=== PATIENT | female | born 1940 | race Caucasian/White ===

== ENCOUNTER 2017-05-28 09:52 | Inpatient (IN) | payer MEDICARE, OTHER ==
[~2017-05-28] VITALS: Ht 157.5 cm; Wt 70.1 kg
[~2017-05-28 09:52] MED LIST: ASPI325T80 PO; FURO20TA3 PO; LEVO88TA4 PO; LOSA50TA6 PO; METO-93 PO; MULT-257 PO; OMEG1CAP57 PO; PRAV10TA2 PO
[2017-05-28] MEDS ORDERED: hydrALAzine 20 MG/ML, 1ML ONE ×2 (10:09→11:16)
[2017-05-28] MEDS ORDERED: hydrALAzine 20 MG/ML, 1ML IV ONE ×2 (10:30→11:30)
[2017-05-28 10:43] LABS: BLOOD UREA NITROGEN 12 mg/dL (7-18)
[2017-05-28 10:51] LABS: IS PT STATUS REG ER OR PRE ER? YES
[2017-05-28 14:30] VITALS: BP 217/80
[2017-05-28] MEDS ORDERED: hydrALAzine 20 MG/ML, 1ML IV PRN ×2 (15:00→20:00)
[2017-05-28] MEDS ORDERED: PRAVASTATIN 20 MG TABLET PO SCH (15:30)
[2017-05-28] MEDS: ENOXAPARIN 40 MG/0.4 ML SQ SCH (15:30)
[2017-05-28] MEDS ORDERED: ACETAMINOPHEN 650 MG/20.3 ML UDC PO PRN (15:30)
[2017-05-28 15:43] VITALS: BP 210/78
[2017-05-28] MEDS ORDERED: FUROSEMIDE 20 MG/2 ML IV ONE (16:00)
[2017-05-28 16:39] LABS: IS PT STATUS REG ER OR PRE ER? NO
[2017-05-28 16:45] VITALS: BP 121/68
[2017-05-28 17:20] VITALS: BP 177/76
[2017-05-28] MEDS ORDERED: ONDANSETRON 2MG/ML, 2ML ONE (17:46)
[2017-05-28 17:48] VITALS: BP 130/79
[2017-05-28] MEDS ORDERED: ONDANSETRON 2MG/ML, 2ML IVPush PRN (18:00)
[2017-05-28 19:04] VITALS: BP 147/72
[2017-05-28] MEDS: LOSARTAN 50MG TABLET PO SCH (20:50)
[2017-05-28 21:36] LABS: IS PT STATUS REG ER OR PRE ER? NO
[2017-05-29 02:39] VITALS: BP 151/72
[2017-05-29 05:20] LABS: ASPARTATE AMINO TRANSFERASE 18 U/L (15-37); BLOOD UREA NITROGEN 14 mg/dL (7-18)
[2017-05-29 06:41] VITALS: BP 118/65
[2017-05-29] MEDS ORDERED: FUROSEMIDE 20 MG/2 ML IVPush SCH (09:00)
[2017-05-29] MEDS ORDERED: MULTIVITAMIN 1 TABLET PO SCH (09:00)
[2017-05-29] MEDS ORDERED: LEVOTHYROXINE 88 MCG TABLET PO SCH (09:00)
[2017-05-29] MEDS ORDERED: METOPROLOL SUCCINATE 50 MG TAB.ER.24H PO SCH (09:00)
[2017-05-29] MEDS ORDERED: FAMOTIDINE 20 MG TABLET PO SCH (09:00)
[2017-05-29 09:42] VITALS: BP 144/66
[2017-05-29] MEDS: LOSARTAN 50MG TABLET PO SCH (09:44)
[2017-05-29] MEDS ORDERED: FURO40TA6 PO (11:43)
[2017-05-29 12:37] VITALS: BP 136/72
[2017-05-29] MEDS: ENOXAPARIN 40 MG/0.4 ML SQ SCH (15:30)
== END 2017-05-29 16:25 | disposition home or self-care (01) | DRG 305 ==
LOC: ED 11:09 → EDIP 12:04 → 5SO 14:19 → DCLOUNGE 05-29 15:43
PROVIDERS: ADMIT Hospitalist; ATTEND Hospitalist
DX: I16.0 Hypertensive urgency (principal); J84.9 Interstitial pulmonary disease, unspecified; I42.9 Cardiomyopathy, unspecified; E03.9 Hypothyroidism, unspecified; E11.9 Type 2 diabetes mellitus without complications; E78.00 Pure hypercholesterolemia, unspecified; I27.2 Other secondary pulmonary hypertension; G35 Multiple sclerosis; I10 Essential (primary) hypertension; I25.10 Atherosclerotic heart disease of native coronary artery without angina pectoris; I25.2 Old myocardial infarction; Z85.3 Personal history of malignant neoplasm of breast; Z86.73 Personal history of transient ischemic attack (TIA), and cerebral infarction without residual deficits; Z95.1 Presence of aortocoronary bypass graft; Z87.891 Personal history of nicotine dependence; Z99.81 Dependence on supplemental oxygen; Z88.1 Allergy status to other antibiotic agents; Z88.6 Allergy status to analgesic agent; Z88.8 Allergy status to other drugs, medicaments and biological substances; Z90.49 Acquired absence of other specified parts of digestive tract; Z90.11 Acquired absence of right breast and nipple; Z90.710 Acquired absence of both cervix and uterus; Z98.1 Arthrodesis status
CPT/HCPCS: 36415; 71010; 80048; 80053; 82040; 83880; 84484; 85025; 93005; 96374; 96376; J2405; J0360; J1940

== ENCOUNTER → 2018-05-07 | Outpatient (CLI) | payer MEDICARE ==
[~2018-05-07] MED LIST changes: +FURO40TA6 PO
== END | disposition home or self-care (01) ==
LOC: CFH 10:20
PROVIDERS: ATTEND Internal Medicine Hematology & Oncology
DX: Z12.31 Encounter for screening mammogram for malignant neoplasm of breast (principal); Z85.3 Personal history of malignant neoplasm of breast; Z90.11 Acquired absence of right breast and nipple
CPT/HCPCS: 77067

== ENCOUNTER 2018-12-09 06:53 | Inpatient (IN) | payer MEDICARE ==
[~2018-12-09] VITALS: Ht 157.5 cm; Wt 69.8 kg
[~2018-12-09 06:53] MED LIST changes: +LOSA50TA14 PO; -LOSA50TA6 PO
[2018-12-09] MEDS ORDERED: SODIUM CHLORIDE FLUSH 10ML SYR IVF ONE (07:00)
[2018-12-09] MEDS ORDERED: MORPHINE SULFATE 4 MG/ML, 1ML IVPush PRN (07:00)
--- NOTE | 2018-12-09 07:07 | NUR ---
Pt BIB [facility]-c/o SOB x2 days, worse this AM when she woke up. Pt's O2 sat initially 83% on her home O2 of 4L via [place]. On arrival of EMS at pt's house pt was sitting up in bed, wheezing, speaking in 2-3 word sentences. On arrival to ER pt appears more comfortable, speaking in full sentences. Lung sounds coarse on auscultation. Pt denies pain, no other complaints. Pt placed in gown, positioned for comfort in bed with warm blanket. Continuous heart, oxygen and BP monitors applied, all safety measures observed.
--- NOTE | 2018-12-09 07:48 | NUR ---
Pt continues resting in bed, resp even and unlabored, speaking in full sentences, denies needs.
--- NOTE | 2018-12-09 08:11 | NUR ---
Pt continues improving, maintaining O2 sat >94% on 5L via [place]. Discussed pt condition with Dr. Denise. Will continue to monitor.
[2018-12-09 08:12] LABS: BASOPHILS # (AUTO) 0.01 x10^3/uL (0-0.1); BASOPHILS % (AUTO) 0 % (0-1); EOSINOPHILS # (AUTO) 0.41 x10^3/uL (0-0.4); EOSINOPHILS % (AUTO) 4 % (1-7); LYMPHOCYTES # (AUTO) 1.58 x10^3/uL (1-3.4); LYMPHOCYTES % (AUTO) 16 % (22-44); MD NO; MEAN CORPUSCULAR HEMOGLOBIN 28.2 pg (27.0-34.8); MEAN CORPUSCULAR HGB CONC 32.6 g/dL (32.4-35.8); MEAN CORPUSCULAR VOLUME 86.5 fL (80-100); MEAN PLATELET VOLUME 6.5 fL (7.4-10.4); MONOCYTES # (AUTO) 0.46 x10^3/uL (0.2-0.8); MONOCYTES % (AUTO) 5 % (2-9); NEUTROPHILS # (AUTO) 7.36 x10^3/uL (1.8-6.8); NEUTROPHILS % (AUTO) 75 % (42-75); PLATELET COUNT 403 x10^3/uL (130-400); RED CELL DISTRIBUTION WIDTH 14.8 % (9.6-15.2)
[2018-12-09 08:23] LABS: ALANINE AMINOTRANSFERASE 14 U/L (12-78); ALBUMIN 3.2 g/dL (3.4-5.0); ANION GAP 6 mmol/L (5-15); CALCIUM 8.9 mg/dL (8.5-10.1); CHLORIDE 103 mmol/L (98-107); CREATININE 1.01 mg/dL (0.55-1.02)
[2018-12-09 08:28] LABS: ALKALINE PHOSPHATASE 116 U/L (45-117); BILIRUBIN,TOTAL 0.6 mg/dL (0.2-1.0); TOTAL PROTEIN 8.5 g/dL (6.4-8.2); TROPONIN I < 0.015 ng/mL (0.000-0.045)
--- NOTE | 2018-12-09 08:56 | NUR ---
Pt resting in bed, NADN, denies needs.
[2018-12-09] MEDS ORDERED: FUROSEMIDE 40 MG/4 ML IV ONE (09:00)
--- NOTE | 2018-12-09 09:11 | NUR ---
[facility] MD at bedside to evaluate pt for admission.
[2018-12-09] MEDS ORDERED: hydrALAzine 20 MG/ML, 1ML IVPush PRN (09:30)
[2018-12-09] MEDS ORDERED: FUROSEMIDE 40 MG/4 ML ONE (09:47)
--- NOTE | 2018-12-09 09:56 | NUR ---
Pt medicated per MAR, denies other needs.
--- NOTE | 2018-12-09 10:16 | NUR ---
Report called to Camille CHAKRABORTY on oncology. Floor ready for pt transport.
--- NOTE | 2018-12-09 10:25 | NUR ---
Pt assisted to bedside commode to void and back to bed without difficulty. POC discussed with pt. Pt denies other needs.
[2018-12-09] MEDS: ENOXAPARIN 30 MG/0.3 ML SQ SCH ×2 (11:23→20:36)
[2018-12-09] MEDS: ASPIRIN 325 MG TABLET PO SCH (11:23)
[2018-12-09] MEDS: LOSARTAN 50MG TABLET PO SCH (11:24)
[2018-12-09] MEDS: METOPROLOL SUCCINATE 50 MG TAB.ER.24H PO SCH (11:24)
[2018-12-09] MEDS: POTASSIUM CHLORIDE 20 MEQ TAB.ER.PRT PO SCH (11:24)
[2018-12-09 11:37] VITALS: BP 166/84
[2018-12-09 20:00] VITALS: BP 147/80
[2018-12-09] MEDS: PRAVASTATIN 20 MG TABLET PO SCH (20:35)
[2018-12-10 02:00] VITALS: BP 149/70
[2018-12-10 04:58] LABS: ANION GAP 6 mmol/L (5-15); CALCIUM 8.6 mg/dL (8.5-10.1); CHLORIDE 104 mmol/L (98-107)
[2018-12-10 04:59] LABS: CREATININE 0.98 mg/dL (0.55-1.02)
[2018-12-10 08:17] VITALS: BP 100/57
[2018-12-10 08:18] LABS: BASOPHILS # (AUTO) 0.04 x10^3/uL (0-0.1); BASOPHILS % (AUTO) 1 % (0-1); EOSINOPHILS # (AUTO) 0.46 x10^3/uL (0-0.4); EOSINOPHILS % (AUTO) 5 % (1-7); LYMPHOCYTES # (AUTO) 2.12 x10^3/uL (1-3.4); LYMPHOCYTES % (AUTO) 23 % (22-44); MD NO; MEAN CORPUSCULAR HEMOGLOBIN 28.1 pg (27.0-34.8); MEAN CORPUSCULAR HGB CONC 32.6 g/dL (32.4-35.8); MEAN PLATELET VOLUME 7.1 fL (7.4-10.4); MONOCYTES # (AUTO) 0.62 x10^3/uL (0.2-0.8); MONOCYTES % (AUTO) 7 % (2-9); NEUTROPHILS # (AUTO) 5.87 x10^3/uL (1.8-6.8); NEUTROPHILS % (AUTO) 65 % (42-75); PLATELET COUNT 388 x10^3/uL (130-400); RED BLOOD COUNT 3.88 x10^6/uL (3.82-5.3); RED CELL DISTRIBUTION WIDTH 15.2 % (9.6-15.2)
[2018-12-10] MEDS: METOPROLOL SUCCINATE 50 MG TAB.ER.24H PO SCH (08:32)
[2018-12-10] MEDS: LOSARTAN 50MG TABLET PO SCH (08:32)
[2018-12-10] MEDS: ENOXAPARIN 30 MG/0.3 ML SQ SCH ×2 (08:41→20:01)
[2018-12-10] MEDS: ASPIRIN 325 MG TABLET PO SCH (08:51)
[2018-12-10] MEDS: LEVOTHYROXINE 88 MCG TABLET PO SCH (08:51)
[2018-12-10] MEDS: POTASSIUM CHLORIDE 20 MEQ TAB.ER.PRT PO SCH (08:51)
[2018-12-10] MEDS: FUROSEMIDE 40 MG TABLET PO SCH (08:52)
[2018-12-10 20:00] VITALS: BP 117/65
[2018-12-10] MEDS: PRAVASTATIN 20 MG TABLET PO SCH (20:08)
[2018-12-11 02:00] VITALS: BP 119/69
[2018-12-11 04:52] LABS: BASOPHILS # (AUTO) 0.04 x10^3/uL (0-0.1); BASOPHILS % (AUTO) 1 % (0-1); EOSINOPHILS # (AUTO) 0.47 x10^3/uL (0-0.4); EOSINOPHILS % (AUTO) 5 % (1-7); LYMPHOCYTES # (AUTO) 2.05 x10^3/uL (1-3.4); LYMPHOCYTES % (AUTO) 23 % (22-44); MD NO; MEAN CORPUSCULAR HEMOGLOBIN 28.5 pg (27.0-34.8); MEAN CORPUSCULAR HGB CONC 32.9 g/dL (32.4-35.8); MEAN CORPUSCULAR VOLUME 86.8 fL (80-100); MEAN PLATELET VOLUME 6.5 fL (7.4-10.4); MONOCYTES % (AUTO) 7 % (2-9); NEUTROPHILS # (AUTO) 5.66 x10^3/uL (1.8-6.8); NEUTROPHILS % (AUTO) 64 % (42-75); PLATELET COUNT 393 x10^3/uL (130-400); RED CELL DISTRIBUTION WIDTH 15.3 % (9.6-15.2)
[2018-12-11 05:01] LABS: ALANINE AMINOTRANSFERASE 15 U/L (12-78); ALBUMIN 2.9 g/dL (3.4-5.0); ANION GAP 9 mmol/L (5-15); CALCIUM 8.6 mg/dL (8.5-10.1); CHLORIDE 103 mmol/L (98-107); CREATININE 1.29 mg/dL (0.55-1.02)
[2018-12-11] MEDS: ASPIRIN 325 MG TABLET PO SCH (05:03)
[2018-12-11 05:04] LABS: ALKALINE PHOSPHATASE 111 U/L (45-117); BILIRUBIN,TOTAL 0.7 mg/dL (0.2-1.0); TOTAL PROTEIN 7.7 g/dL (6.4-8.2)
[2018-12-11 07:32] VITALS: BP 117/64
[2018-12-11] MEDS: POTASSIUM CHLORIDE 20 MEQ TAB.ER.PRT PO SCH (10:01)
[2018-12-11] MEDS: METOPROLOL SUCCINATE 50 MG TAB.ER.24H PO SCH (10:02)
[2018-12-11] MEDS: LOSARTAN 50MG TABLET PO SCH (10:02)
[2018-12-11] MEDS: FUROSEMIDE 40 MG TABLET PO SCH (10:02)
[2018-12-11] MEDS: LEVOTHYROXINE 88 MCG TABLET PO SCH (10:02)
[2018-12-11] MEDS ORDERED: ENOXAPARIN 30 MG/0.3 ML SQ SCH (11:00)
[2018-12-11 12:41] VITALS: BP 109/66
== END 2018-12-11 16:52 | disposition home health service (06) | DRG 291 ==
LOC: ED 08:51 → EDIP 08:52 → 3NW 10:53 → DCLOUNGE 12-11 16:26
PROVIDERS: ADMIT Family Medicine; ATTEND Family Medicine
DX: I11.0 Hypertensive heart disease with heart failure (principal); J96.21 Acute and chronic respiratory failure with hypoxia; J84.9 Interstitial pulmonary disease, unspecified; I50.43 Acute on chronic combined systolic (congestive) and diastolic (congestive) heart failure; E03.9 Hypothyroidism, unspecified; E11.9 Type 2 diabetes mellitus without complications; E78.00 Pure hypercholesterolemia, unspecified; D64.9 Anemia, unspecified; D47.3 Essential (hemorrhagic) thrombocythemia; I25.10 Atherosclerotic heart disease of native coronary artery without angina pectoris; Z86.73 Personal history of transient ischemic attack (TIA), and cerebral infarction without residual deficits; Z87.891 Personal history of nicotine dependence; Z90.710 Acquired absence of both cervix and uterus; Z99.81 Dependence on supplemental oxygen; I25.2 Old myocardial infarction; Z95.1 Presence of aortocoronary bypass graft; Z90.10 Acquired absence of unspecified breast and nipple; Z85.3 Personal history of malignant neoplasm of breast; Z90.49 Acquired absence of other specified parts of digestive tract; Z88.6 Allergy status to analgesic agent; Z88.5 Allergy status to narcotic agent; Z88.8 Allergy status to other drugs, medicaments and biological substances; Z98.51 Tubal ligation status
CPT/HCPCS: 36415; 71045; 80048; 80053; 83880; 84484; 85025; 87040; 93005; 99285; G0378; J1650; J1940

== ENCOUNTER → 2019-01-07 | Outpatient (CLI) | payer MEDICARE ==
[~2019-01-07] MED LIST changes: +REGADENOSON 0.4 MG/5 ML SYRINGE ONE
== END | disposition home or self-care (01) ==
LOC: CFH 12:18
PROVIDERS: ATTEND Internal Medicine Cardiovascular Disease
DX: I25.10 Atherosclerotic heart disease of native coronary artery without angina pectoris (principal); I25.2 Old myocardial infarction; R07.9 Chest pain, unspecified
CPT/HCPCS: 78452; 93017; A9502; J2785

== ENCOUNTER 2019-01-12 14:23 | Outpatient (CLI) | payer MEDICARE ==
[~2019-01-12 14:23] MED LIST changes: -REGADENOSON 0.4 MG/5 ML SYRINGE ONE
== END 2019-01-12 23:59 | disposition home or self-care (01) ==
LOC: CFH 14:23
PROVIDERS: ATTEND Internal Medicine Cardiovascular Disease
DX: I07.1 Rheumatic tricuspid insufficiency (principal); I25.10 Atherosclerotic heart disease of native coronary artery without angina pectoris; I10 Essential (primary) hypertension; E78.5 Hyperlipidemia, unspecified; I25.2 Old myocardial infarction; Z95.1 Presence of aortocoronary bypass graft; Z85.3 Personal history of malignant neoplasm of breast
CPT/HCPCS: 93306